=== PATIENT | male | born 1965 | race Caucasian/White ===

== ENCOUNTER 2018-01-23 10:02 | Emergency (ER) | payer OTHER ==
[~2018-01-23] VITALS: Ht 177.8 cm; Wt 49.8 kg
[2018-01-23] MEDS ORDERED: LORazepam 1MG TABLET PO ONE (10:30)
[2018-01-23] MEDS ORDERED: LORazepam 1MG TABLET ONE (11:11)
[2018-01-23 12:53] VITALS: BP 118/84
== END 2018-01-23 13:02 | disposition home or self-care (01) ==
LOC: ED 12:57
DX: R06.00 Dyspnea, unspecified (principal); F17.290 Nicotine dependence, other tobacco product, uncomplicated
CPT/HCPCS: 71275; 93005; 99284; 99406